=== PATIENT | female | born 1980 | race Caucasian/White ===

== ENCOUNTER 2024-01-03 08:00 | Day surgery (SDC) | payer BC ==
[2023-12-29 12:11] VITALS: BMI 30.7
[2024-01-03] MEDS ORDERED: ACETAMINOPHEN 1000 MG/100 ML BAG IVPB ONE (08:30)
[2024-01-03] MEDS ORDERED: CEFAZOLIN 2 GM in DEXTROSE 5%-WATER - 100 ML IVPB ONE (08:30)
[2024-01-03] MEDS: LIDOCAINE 1%/EPI 1:100000 (20 ML MULTI DOSE VIAL) IJ ONE (09:34)
[2024-01-03] MEDS: ceFAZolin SODIUM 1 GM VIAL IVPB ONE ×2 (09:34→09:45)
[2024-01-03] MEDS ORDERED: ONDANSETRON 4 MG/2 ML VIAL IVPUSH PRN (12:39)
[2024-01-03 13:17] VITALS: TEMP 97.5
[2024-01-03 13:42] VITALS: RESP 16
[2024-01-03] MEDS: LACTATED RINGERS SOLUTION 1,000 ML IV SCH (15:00)
[2024-01-03 15:22] VITALS: BP 111/59; PULSE 70
[2024-01-03] MEDS: oxyCODONE HCL 5 MG TABLET PO ONE (15:40)
== END 2024-01-03 18:10 | disposition home or self-care (01) ==
LOC: JASU-SURG 08:00
PROVIDERS: ATTEND Specialist
PROC: 0UT7FZZ Resection of Bilateral Fallopian Tubes, Via Natural or Artificial Opening With Percutaneous Endoscopic Assistance (ICD-10-PCS; 2024-01-03)
PROC: 0DNW4ZZ Release Peritoneum, Percutaneous Endoscopic Approach (ICD-10-PCS; 2024-01-03)
PROC: 0UN24ZZ Release Bilateral Ovaries, Percutaneous Endoscopic Approach (ICD-10-PCS; 2024-01-03)
PROC: 0UN74ZZ Release Bilateral Fallopian Tubes, Percutaneous Endoscopic Approach (ICD-10-PCS; 2024-01-03)
PROC: 8E0W4CZ Robotic Assisted Procedure of Trunk Region, Percutaneous Endoscopic Approach (ICD-10-PCS; 2024-01-03)
PROC: 0UT9FZZ Resection of Uterus, Via Natural or Artificial Opening With Percutaneous Endoscopic Assistance (ICD-10-PCS; principal; 2024-01-03 09:00)
DX: D25.1 Intramural leiomyoma of uterus (principal); D25.2 Subserosal leiomyoma of uterus; N92.0 Excessive and frequent menstruation with regular cycle; N99.4 Postprocedural pelvic peritoneal adhesions
CPT/HCPCS: 58554; S2900; 81025; 86850; 86900; 86901; 88307-TC; 94760; J0131